=== PATIENT | male | born 1965 | race Caucasian/White ===

== ENCOUNTER 2018-02-25 16:24 | Emergency (ER) | payer MEDICAID ==
[~2018-02-25] VITALS: Ht 175.3 cm; Wt 85.3 kg
[~2018-02-25 16:24] MED LIST: PSEU120T9 PO; VITAMIN C PO
[2018-02-25 16:25] VITALS: BP 141/70
--- NOTE | 2018-02-25 17:39 | NUR ---
TASK RN: DC EDCUATION PROVIDED, PT DEMONSTRATES UNDERSTANDING. PT AMBULATED STEADILY TO DC WITH RN
== END 2018-02-25 17:41 | disposition home or self-care (01) ==
LOC: ED 17:15
DX: M25.572 Pain in left ankle and joints of left foot (principal)
CPT/HCPCS: 99283